=== PATIENT | female | born 1950 | race Caucasian/White ===

== ENCOUNTER 2019-04-17 17:14 | Emergency (ER) | payer MEDICARE, OTHER ==
[~2019-04-17] VITALS: Ht 167.6 cm; Wt 104.3 kg
--- NOTE | 2019-04-19 18:30 | CONS ---
[facility] [address], [place] [address] Signed DATE OF CONSULTATION: 04/17/2019 TIME: 9:30 p.m. REQUESTING PHYSICIAN: Shanti Cody MD. PROBLEM: Right soft tissue swelling following fine-needle aspiration biopsy of right thyroid nodule (Dr. Parrish, [place], [place]). 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 Her accompanies her tonight and he is well known to me from the past as well. She was referred by Dr. Dickinson in [place], [place] to Dr. Parrish, solar field service technician in [place] for a nearly 4 cm right thyroid nodule for fine-needle aspiration biopsy. Biopsy was performed yesterday without incident. It was not particularly painful except with injection of local anesthetic. The patient developed some pain on swallowing and advised Dr. Parrish's office who has her undergo an ultrasound apparently today, which showed no clear evidence of abnormality. She had worsening swallowing and definitely pain with swallowing and presented to the emergency room and was evaluated by Dr. Cody. She was found to have no sign of tracheal deviation, but there is fullness and vague swelling of the right neck area. On that basis, a CT scan of the neck was performed, which showed a large 35 x 29 mm mass of the thyroid and some edema and swelling nearby. There is soft tissue swelling anterior to the thyroid nodule area. The patient under observation for about 3 hours, has shown no sign of progression of problem and indeed has somewhat improved. As regard to thyroid nodule, it was not particularly problematic for her prior to evaluation. She says she had no dysphagia or air hunger or other problems, only noticed the mass incidentally. She has no family history of thyroid cancer, no history of exposure to head and neck radiation that she is aware of. The patient does have family history of carotid stenosis in her mother, who of a stroke apparently at the time of carotid endarterectomy. The patient carotid, said to have some calcification and incidental recommendation for duplex ultrasound at some point has been made by the radiologist. Electronically Signed By: YAA LEUNG MD 04/19/19 1830 PATIENT NAME: CIERA TELLO CONSULTATION DATE OF : 52 REPORT #: [id number] PHYSICIAN: YAA LEUNG MD PCP: WINNIE DICKINSON MD REPORT IS CONFIDENTIAL AND NOT TO BE RELEASED WITHOUT AUTHORIZATION [facility] [address], [place] [address] Signed Notably, the patient has no TIA symptoms. Past medical history is negative for anticoagulation therapy or bleeding diathesis. PHYSICAL EXAMINATION: GENERAL: Pleasant white woman, who looks to be in no significant distress. She is accompanied by her . NECK: Upright examination does show some vague swelling of the neck. There is no tracheal deviation. She has no hoarseness. Palpation reveals tenderness over the right thyroid gland area. IMAGING: My review of the CT scan shows a relatively large nodule of the right thyroid lobe, which has a hypodense architecture compared to [place] thyroid. There is soft tissue swelling anterior to the gland on the right side and less so to the left. There is no fluid collection or air bubbles. ASSESSMENT: Very likely, the patient had some perithyroidal bleeding during the course of a normal fine needle aspiration biopsy of the thyroid under ultrasound guidance. There is no sign of acute extravasation so far as can be told and I suspect this edema and swelling will resolve promptly. She does not have clinical significant deviation of her trachea acutely as far as I can see upon review of her coronal studies. It is unlikely she had a hollow organ puncture (esophagus) or any enteric leak. I believe this will resolve without too much intervention. She should avoid anticoagulants for the time being of any sort and Tylenol would be considered for pain management. I am happy to see her again should her symptoms not resolve. Discussed with her also the potential findings on her pathologic finding of the thyroid. A Linwood III or greater category of pathologic result on the thyroid biopsy might prompt need for thyroid lobectomy and I am available to her for that should the need arise as well. She understands that. Additionally, she does have some carotid calcifications that are noted particularly at the left carotid bifurcation, far less on the right side. Given her prior history of smoking and her mother's history of cerebrovascular accident related to carotid disease, it would be appropriate as mentioned by Dr. Khan to consider carotid duplex ultrasound after edema and so forth of this recent intervention subsides. Electronically Signed By: YAA LEUNG MD 04/19/19 4180 PATIENT NAME: CIERA TELLO CONSULTATION DATE OF : 52 REPORT #: [id number] PHYSICIAN: YAA LEUNG MD PCP: WINNIE DICKINSON MD REPORT IS CONFIDENTIAL AND NOT TO BE RELEASED WITHOUT AUTHORIZATION [facility] [address], [place] [address] Signed Yaa Leung MD JM/MODL /[id number] cc: MD Winnie Dial MD Copies: GALILEO PARRISH MD, ROBERT D DMD ~ Electronically Signed By: YAA LEUNG MD 04/19/19 1830 PATIENT NAME: CIERA TELLO MICKI CONSULTATION DATE OF : 52 REPORT #: [id number] PHYSICIAN: YAA LEUNG MD PCP: WINNIE DICKINSON MD REPORT IS CONFIDENTIAL AND NOT TO BE RELEASED WITHOUT AUTHORIZATION
== END 2019-04-17 21:56 | disposition home or self-care (01) ==
LOC: ED 17:14
DX: E89.820 Postprocedural hematoma of an endocrine system organ or structure following an endocrine system procedure (principal); Z87.891 Personal history of nicotine dependence
CPT/HCPCS: 70491; 80053; 85025; 85651; 86140; 96360; 99284-25; J7030; Q9967